=== PATIENT | female | born 1970 | race Caucasian/White ===

== ENCOUNTER 2019-05-28 17:46 | Inpatient (IN) | payer OTHER ==
[~2019-05-28] VITALS: Ht 162.6 cm; Wt 89.4 kg
[2019-05-28] MEDS ORDERED: VENL50TA44 PO (20:46)
[2019-05-28] MEDS ORDERED: EMPA10TA PO (20:46)
[2019-05-28 21:05] LABS: BASOPHILS % (AUTO) 0.7 % (0.0-2.0); EOSINOPHILS % (AUTO) 1.1 % (1.0-6.0); HEMATOCRIT 50.8 % (36-46); HEMOGLOBIN 16.9 g/dL (12.0-16.0); LYMPHOCYTES # (AUTO) 3.4 K/uL (1.0-4.8); LYMPHOCYTES % (AUTO) 36.2 % (22.0-44.0); MEAN CORPUSCULAR HEMOGLOBIN 31.1 pg (26.0-34.0); MEAN CORPUSCULAR HGB CONC 33.3 G/dL (31.0-37.0); MEAN CORPUSCULAR VOLUME 94 fL (80-100); MONOCYTES # (AUTO) 0.9 K/uL (0.1-1.0); MONOCYTES % (AUTO) 9.1 % (2.0-9.0); NEUTROPHILS % (AUTO) 52.9 % (40.0-70.0); PLATELET COUNT (AUTO) 267 K/uL (150-450); RED BLOOD CELL COUNT(AUTO) 5.43 MIL/uL (4.00-5.20); RED CELL DISTRIBUTION WIDTH 14.6 % (11.5-14.5)
[2019-05-28] MEDS ORDERED: LORazepam 2 MG/ML VIAL IM ONE ×2 (21:15)
[2019-05-28] MEDS ORDERED: DiphenhydrAMINE HCL 50 MG/ML VIAL IM ONE ×2 (21:15)
[2019-05-28] MEDS ORDERED: HALOPERIDOL LACTATE 5 MG/ML VIAL IM ONE ×2 (21:15)
[2019-05-28 21:16] LABS: ANION GAP 11 mmol/L (8-16); CALCIUM, TOTAL 9.4 mg/dL (8.8-10.5); CARBON DIOXIDE 25 mmol/L (22-29); CHLORIDE 101 mmol/L (98-107); CREATININE 0.84 mg/dL (0.60-1.30); GLOMERULAR FILTR. RATE CALC > 60 mL/min (>60); GLUCOSE,RANDOM 134 mg/dL (70-110); POTASSIUM 3.9 mmol/L (3.5-5.1); SODIUM SERUM 137 mmol/L (136-145); UREA NITROGEN, BLOOD 15 mg/dL (7-18)
[2019-05-28 21:26] LABS: ALANINE AMINOTRANSFERASE 42 U/L (12-78); ALBUMIN 3.8 g/dL (3.4-5.0); ALKALINE PHOSPHATASE 65 U/L (46-116); ASPARTATE AMINOTRANSFERASE 22 U/L (15-37); BILIRUBIN,TOTAL 0.5 mg/dL (0.1-1.0); HCG,QUANTITATIVE < 1 mIU/mL (0-6)
[2019-05-28] MEDS ORDERED: LORazepam 2 MG TABLET PO PRN (22:15)
[2019-05-28] MEDS ORDERED: HALOPERIDOL 5 MG TABLET PO PRN (22:15)
[2019-05-28] MEDS ORDERED: ZOLPIDEM TARTRATE 10 MG TABLET PO PRN (22:15)
[2019-05-29 01:27] VITALS: BP 129/102
[2019-05-29] MEDS ORDERED: INFLUENZA VIRUS VACCINE QVS 2019-20 (3YR+)/PF 60 MCG/0.5 ML SYRINGE IM ONE (01:30)
[2019-05-29] MEDS ORDERED: PNEUMOCOCCAL VACCINE POLYVALENT 0.5 ML VIAL [PPSV23] IM ONE (01:30)
[2019-05-29 06:20] LABS: CHOL/HDL RATIO 3.3 (3.9-5.7)
[2019-05-29] MEDS ORDERED: INSULIN LISPRO 100 UNITS/ML SQ PRN (06:30)
[2019-05-29] MEDS ORDERED: DEXTROSE 50%-WATER 25 GM/50 ML SYRINGE IVP PRN (06:30)
[2019-05-29 08:00] VITALS: BP 118/69
[2019-05-29 11:22] LABS: GLUCOMETER DEV NAME(LOC) 3E.I; GLUCOSE,POINT OF CARE 145 MG/DL (70-110)
[2019-05-29] MEDS ORDERED: VENL-66 PO (11:38)
[2019-05-29] MEDS ORDERED: ALBUTEROL SULFATE HFA 90 MCG/PUFF 8 GM INHALER IH PRN (11:45)
[2019-05-29] MEDS ORDERED: MAGNESIUM HYDROXIDE SUSPENSION 30 ML UDCUP PO PRN (11:45)
[2019-05-29] MEDS ORDERED: IBUPROFEN 400 MG TABLET PO PRN (11:45)
[2019-05-29] MEDS ORDERED: VENLAFAXINE HCL 37.5 MG ER CAPSULE PO SCH ×2 (11:45→21:00)
[2019-05-29] MEDS ORDERED: NICOTINE 14 MG/24 HOUR PATCH TD PRN (11:45)
[2019-05-29] MEDS ORDERED: LOPERAMIDE HCL 2 MG CAPSULE PO PRN (11:45)
[2019-05-29] MEDS ORDERED: ACETAMINOPHEN 325 MG TABLET PO PRN (11:45)
[2019-05-29] MEDS ORDERED: CloNIDine HCL 0.1 MG TABLET PO PRN (11:45)
[2019-05-29] MEDS ORDERED: GuaiFENesin/D-METHORPHAN [SUGAR-FREE] 200-20MG/10 ML SYRUP UDCUP PO PRN (11:45)
[2019-05-29] MEDS ORDERED: MAG HYDROX/AL HYDROX/SIMETH ES 30 ML SUSPENSION UDCUP PO PRN (11:45)
[2019-05-29] MEDS ORDERED: ONDANSETRON HCL 4 MG TABLET PO PRN (11:45)
[2019-05-29] MEDS ORDERED: PETROLATUM,WHITE 28 GM JELLY TP PRN (11:45)
[2019-05-29] MEDS ORDERED: DOCUSATE SODIUM 100 MG CAPSULE PO PRN (11:45)
[2019-05-29] MEDS ORDERED: SUMA25TA9 PO (13:32)
[2019-05-29] MEDS ORDERED: LINA5TAB PO (13:32)
[2019-05-29] MEDS ORDERED: SUMAtriptan SUCCINATE 25 MG TABLET PO PRN (14:45)
[2019-05-29 18:00] VITALS: BP 100/70
[2019-05-29 21:17] LABS: GLUCOMETER DEV NAME(LOC) 3EX.; GLUCOSE,POINT OF CARE 129 MG/DL (70-110)
[2019-05-29] MEDS ORDERED: LinaGLIPtin 5 MG TABLET PO SCH (22:00)
[2019-05-30 05:56] LABS: GLUCOMETER DEV NAME(LOC) 3EX.; GLUCOSE,POINT OF CARE 118 MG/DL (70-110)
[2019-05-30 09:33] VITALS: BP 99/67
== END 2019-05-30 13:10 | disposition home or self-care (01) | DRG 881 ==
LOC: EMS 17:47 → 3EX 05-29 00:41
PROVIDERS: ADMIT Psychiatry & Neurology Psychiatry; ATTEND Psychiatry & Neurology Psychiatry
DX: F32.9 Major depressive disorder, single episode, unspecified (principal); R45.851 Suicidal ideations; E11.9 Type 2 diabetes mellitus without complications; G43.909 Migraine, unspecified, not intractable, without status migrainosus; E66.9 Obesity, unspecified; R03.0 Elevated blood-pressure reading, without diagnosis of hypertension; Z68.33 Body mass index [BMI] 33.0-33.9, adult
CPT/HCPCS: 83036; G0378; G0480; J1200; J1630; J2060